=== PATIENT | female | born 1995 | race African-American/Black ===

== ENCOUNTER 2022-10-31 18:57 | Emergency (ER) | payer OTHER, SELFPAY ==
[2022-10-31] VITALS (8 sets, daily range): BP systolic 112–143; BP diastolic 62–79; PULSE 70–89; RESP 16–18; TEMP 36.4–36.6; O2SAT 99–100
--- NOTE | ~2022-10-31 | CT_ITS ---
EXAMINATION: CTA brain carotid DATE: 10/31/2022 21:02 INDICATION: headache x1 month, family hx of aneurysm TECHNIQUE: Computed tomographic angiography (CTA) of the head was performed withwith 100 mL Omnipaque -350 intravenous contrast. CTA of the neck was performed with intravenous contrast. The dose-length p roduct was 1790.12 mGy-cm. Maximum intensity projection and volume rendered 3D-reconstructions were c reated by the technologist on a separate workstation. COMPARISON: None. FINDINGS: CT BRAIN: No acute large vessel infarct, intracranial hemorrhage, mass, or hydrocephalus. CTA HEAD: No large vessel occlusion, aneurysm, high flow vascular malformation, nidus or extravasation. The com municating arteries are patent. Hypoplastic intradural right distal vertebral artery. Normal-appearin g cerebral veins. Symmetric cerebral parenchymal enhancement. CTA NECK: Aortic arch and proximal great vessels: Bovine arch. Right common carotid, carotid bifurcation, and internal carotid artery: No plaque.There is 0% stenosi s of the proximal right internal carotid artery relative to normal distal artery lumen diameter (NASC ET criteria). Left common carotid, carotid bifurcation, and internal carotid artery: No plaque.There is 0% stenosis of the proximal left internal carotid artery relative to normal distal artery lumen diameter (NASCET criteria). Vertebral arteries: No significant plaque or stenosis. The left vertebral artery is dominant. Other findings: None. IMPRESSION: No acute intracranial process. No large vessel occlusion. No cerebral aneurysm. No significant caroti d or vertebral stenosis. Reviewed, dictated and finalized at location [facility] [employer] IMPRESSION: No acute intracranial process. No large vessel occlusion. No cerebral aneurysm. No significant carotid or vertebral stenosis.
--- NOTE | 2022-10-31 19:35 | PC.NURSE ---
Triage note reviewed and confirmed. First encounter w/ pt. Pt c/o intermittent headache x a few months. States pain is on R side. 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 No medical problems. Pt states receiving IV zofran seating captain by EMS. Pt resting comfortably in bed, NAD.
[2022-10-31] MEDS: KETOROLAC 30 MG/ML VIAL (*BKC) IV PUSH (20:13)
[2022-10-31] MEDS: SODIUM CHLORIDE 0.9% IV 1,000 ML 999 ML IV CONT (20:13)
[2022-10-31] MEDS: diphenhydrAMINE HCl INJ 50 MG/ML VIAL IV PUSH (20:13)
[2022-10-31] MEDS: METOCLOPRAMIDE HCL INJ 10 MG/2 ML VIAL IV PUSH (20:13)
[2022-10-31 20:23] LABS: Basophils Percent Auto 0.3 % (0.2-1.2); Eosinophils Percent Auto 0.5 % (0-4.4); Hematocrit 38.6 % (37.0-47.0); Hemoglobin 12.8 g/dL (12.0-15.0); Immature Granulocyte Absolute 0.03 K/mm3 (0.00-0.031); Immature Granulocyte Percent A 0.4 % (0-0.5); Lymphocytes Absolute Auto 1.58 K/mm3 (0.9-3.2); Lymphocytes Percent Auto 21.4 % (18.3-44.2); Mean Corpuscular HGB Conc 33.2 g/dl (32-36); Mean Corpuscular Volume 84.5 fl (80-100); Mean Platelet Volume 10.1 fl (7.4-10.4); Monocytes Absolute Auto 0.3 K/mm3 (0.1-0.6); Monocytes Percent Auto 4.6 % (2.6-8.5); Neutrophils Absolute Auto 5.4 K/mm3 (1.3-6.7); Neutrophils Percent Auto 72.8 % (45.5-73.1); Platelet Count Result 224 k/mm3 (150-375); Red Blood Count 4.57 M/mm3 (4.2-5.4); Red Cell Distribution Width 13.7 % (11.5-14.5); White Blood Count 7.4 K/mm3 (4.5-10.0)
[2022-10-31 20:25] LABS: Appearance Urine Slightly Cloudy (Clear); Bilirubin Urine Negative (Negative); Blood Urine 2+ (Negative); Color Urine Yellow (Yellow); Glucose Urine UA Negative (Negative); Ketones Urine Negative (Negative); Leukocyte Esterase Ur Negative LEU/UL (Negative); Nitrate Urine Negative (Negative); Protein Urine Negative (Negative); Urobilinogen Urine 0.2 mg/dL (<2.0); pH Urine 8.5 (5.0-9.0)
[2022-10-31 20:26] LABS: Mucus Urine Rare /lpf; RBC Urine 0-2 /hpf (0-2); Squamous Epithelial Cell Urine Rare /hpf (Few); WBC Urine 0-3 /hpf
[2022-10-31 20:27] LABS: Add Urine Microscopic? YES
[2022-10-31 20:32] LABS: Alanine Aminotransferase 20 U/L (6-35); Albumin Level 4.4 g/dL (3.5-5.1); Alkaline Phosphatase 77 U/L (38-126); Anion Gap 8 mmol/L (8-16); Aspartate Amino Transferase 22 U/L (14-36); Bilirubin,Total 0.4 mg/dL (0.2-1.3); Blood Urea Nitrogen 13 mg/dL (7-17); Calcium 8.7 mg/dL (8.4-10.2); Carbon Dioxide 24 mmol/L (22-30); Chloride 105 mmol/L (98-107); Estimated Glomerular Filt Rate > 60; Glucose 108 mg/dL (65-110); Potassium 3.5 mmol/L (3.4-5.0); Sodium 137 mmol/L (137-145)
--- NOTE | 2022-10-31 20:40 | PC.NURSE ---
pt resting comfortably in bed, NAD. Skin warm/dry, WCTM.
--- NOTE | 2022-10-31 21:40 | ED.GENADULT ---
HPI - General Adult General Chief complaint: Headache Stated complaint: headache Time Seen by Provider: 10/31/22 19:55 History of Present Illness HPI narrative: Patient is a 27-year-old female who presents emerged from with chief complaint of headache. Patient reports that she has been having intermittent headaches for several days now reports that the light bothers her eyes reports she has some nausea patient reports is more right frontal patient states has been progressively worse but denies fever patient states that she was more concerned as her headaches have not been improving and that her mother had a cerebral aneurysm. Related Data Allergies Allergy/AdvReac Type Severity Reaction Status Date / Time No Known Allergies Allergy Unverified 07/31/17 22:35 Review of Systems Review of Systems: A 10 system review of systems was completed on the patient and is negative except for what is stated in the HPI. Nursing and ancillary documentation was reviewed. Exam Narrative: GENERAL: Well-appearing, well-nourished, and in no acute distress. HEAD: Normocephalic, atraumatic. EYES: PERRLA and EOMI. ENT: Nares clear, no rhinorrhea or epistaxis. Mucous membranes moist. NECK: Supple. CHEST: Clear to auscultation. No respiratory distress. HEART: Regular rate and rhythm. No murmur heard. Normal peripheral pulses. ABDOMEN: Soft, nontender, nondistended, normal active bowel sounds. EXTREMITIES: Normal range of motion. No edema. SKIN: Warm, dry, no rash. NEURO: No focal deficits. Alert and oriented x3. PSYCH: Normal mood and affect. Course Vital Signs Vital signs: Vital Signs Temperature 36.4 C 10/31/22 19:17 Pulse Rate 71 10/31/22 19:17 Respiratory Rate 16 10/31/22 19:17 Blood Pressure 143/77 H 10/31/22 19:17 Pulse Oximetry 100 10/31/22 19:17 Temperature 36.4 C 10/31/22 19:17 Pulse Rate 89 10/31/22 20:02 Respiratory Rate 18 10/31/22 20:02 Blood Pressure 112/62 10/31/22 20:02 Pulse Oximetry 100 10/31/22 20:30 Medical Decision Making [facility] Narrative Medical decision making narrative: Differential diagnosis includes migraine headache, tension headache, cerebral aneurysm, Due to the patient's significant history in her family of aneurysm and the new worsening headache CT angiography was obtained of the head showed no evidence of cerebral aneurysm I receiving standard migraine therapy patient is feeling much better Laboratory studies were obtained which showed a normal urinalysis normal CBC and normal electrolytes. Vital Signs Vital Signs: Vital Signs Temperature 36.4 C 10/31/22 19:17 Pulse Rate 71 10/31/22 19:17 Respiratory Rate 16 10/31/22 19:17 Blood Pressure 143/77 H 10/31/22 19:17 Pulse Oximetry 100 10/31/22 19:17 Temperature 36.4 C 10/31/22 19:17 Pulse Rate 89 10/31/22 20:02 Respiratory Rate 18 10/31/22 20:02 Blood Pressure 112/62 10/31/22 20:02 Pulse Oximetry 100 10/31/22 20:30 Lab Data 10/31/22 20:15 10/31/22 20:15 Labs: Lab Results 10/31/22 10/31/22 10/31/22 Range/Units 20:15 20:15 20:15 WBC 7.4 (4.5-10.0) K/mm3 RBC 4.57 (4.2-5.4) M/mm3 Hgb 12.8 (12.0-15.0) g/dL Hct 38.6 (37.0-47.0) % MCV 84.5 (80-100) fl MCH 28.0 (26-34) pg MCHC 33.2 (32-36) g/dl RDW 13.7 (11.5-14.5) % Plt Count 224 (150-375) k/mm3 MPV 10.1 (7.4-10.4) fl Immature Gran % (Auto) 0.4 (0-0.5) % Neut % (Auto) 72.8 (45.5-73.1) % Lymph % (Auto) 21.4 (18.3-44.2) % [place] % (Auto) 4.6 (2.6-8.5) % Eos % (Auto) 0.5 (0-4.4) % Baso % (Auto) 0.3 (0.2-1.2) % Lymph # (Auto) 1.58 (0.9-3.2) K/mm3 [place] # (Auto) 0.3 (0.1-0.6) K/mm3 Eos # (Auto) 0.0 (0-0.3) K/mm3 Baso # (Auto) 0.0 (0.0-0.1) K/mm3 Abs Immat Gran (auto) 0.03 (0.00-0.031) K/mm3 Absolute Neuts (auto) 5.4 (1.3-6.7) K/mm3 Absolute Nucleated RBC 0.0 (0.0-0.012) K/mm3 Nu
--- NOTE | 2022-11-07 11:01 | PC.NURSE ---
LATE ENTRY This note is being entered to document information to the patient's record. The following information was omitted on [11/07/22], by [Desire] NS stopped at 2112 on 10/31/22 .
== END 2022-10-31 22:19 | disposition home or self-care (01) ==
PROVIDERS: Emergency Provider Emergency Medicine
DX: G43.909 Migraine, unspecified, not intractable, without status migrainosus (principal)
CPT/HCPCS: 36415; 70496; 70498; 80053; 81001; 81025; 85025; 96361; 96374; 96375; 99284; J1200; J1885; J2765; J7030; Q9967

== ENCOUNTER 2023-01-24 18:23 | Emergency (ER) | payer OTHER, SELFPAY ==
[2023-01-24 18:29] VITALS: BP 125/60; PULSE 80; RESP 18; TEMP 36.9; O2SAT 94
[2023-01-24 20:30] VITALS: BP 123/74; PULSE 80; RESP 19; O2SAT 99
--- NOTE | 2023-01-24 20:44 | ED.FEMALEGU ---
HPI - Female Genitourinary General Chief complaint: STORE FACILITY TECHNICIAN Stated complaint: vaginal irritation Time Seen by Provider: 01/24/23 20:05 History of Present Illness HPI Narrative: This is a 27-year-old female with no significant past medical history, -1-0-1, who presents to the emergency department complaining of pelvic discomfort and vaginal irritation for the past week. She denies fevers or associated abdominal pain, but has had tenderness during sexual intercourse and abnormal vaginal discharge without bleeding. She has no other complaints or change in partners. She is followed by gynecology at [facility] in [facility]. Related Data Allergies Allergy/AdvReac Type Severity Reaction Status Date / Time No Known Allergies Allergy Unverified 07/31/17 22:35 Review of Systems Review of Systems: CONSTITUTIONAL: Denies fever, chills, or sweats. GASTROINTESTINAL: Denies abdominal pain, nausea, vomiting, or diarrhea. GENITOURINARY: Abnormal vaginal discharge, vaginal irritation, dyspareunia denies dysuria or hematuria. SKIN: Denies rash or itching. MUSCULOSKELETAL: Denies back pain, joint pain, or myalgia. NEUROLOGIC: Denies headache, numbness, dizziness, or weakness. PSYCHIATRIC: Denies anxiety or depression. [facility] Social History Social History (Updated 01/24/23 @ 20:47 by Terell Cheng MD) Smoking status: Never smoker Alcohol intake: never Substance use: never Exam Narrative: GENERAL: Well-developed, well-nourished, and in no acute distress. HEAD: Normocephalic, atraumatic. EYES: PERRLA and EOMI. CHEST: Clear to auscultation. No respiratory distress. No wheezes rales or rhonchi HEART: Regular rate and rhythm. No murmur heard. Normal peripheral pulses. ABDOMEN: Soft, mild right lower quadrant tenderness to palpation without guarding or rebound, nondistended, normal active bowel sounds. : Exam chaperoned by female traffic signal technician. Normal external female genitalia. Purulent cervical discharge noted without bleeding. Cervical motion tenderness and bilateral adnexal tenderness, right greater than left EXTREMITIES: Normal range of motion. No edema. PSYCH: Normal mood and affect. Course Course Emergency Course: 20:45 - Exam is concerning for PID. Vital signs within normal limits. I have a low suspicion for TOA. test negative. Will treat with Rocephin, Doxy and Flagyl. UA pending. 22:00 - UA not concerning for UTI. Gonorrhea, chlamydia and trichomonas pending. Will discharge with regimen of doxycycline and Flagyl for PID. I advised patient to follow-up with her primary care doctor and dean of admissions. Discussed return and emergency precautions including signs/symptoms of acute abdomen and sepsis. The patient voiced understanding and is comfortable with the plan. All questions answered to her satisfaction. Vital Signs Vital signs: Vital Signs Temperature 98.5 F 01/24/23 18:29 Pulse Rate 80 01/24/23 18:29 Respiratory Rate 18 01/24/23 18:29 Blood Pressure 125/60 01/24/23 18:29 Pulse Oximetry 94 01/24/23 18:29 Oxygen Delivery Room Air 01/24/23 18:29 Temperature 98.5 F 01/24/23 18:29 Pulse Rate 80 01/24/23 18:29 Respiratory Rate 18 01/24/23 18:29 Blood Pressure 125/60 01/24/23 18:29 Pulse Oximetry 94 01/24/23 18:29 Oxygen Delivery Room Air 01/24/23 18:29 MDM - Female Genitourinary MDM Narrative Medical decision making narrative: Plan: Labs, test, antibiotics, reassess Differential Diagnosis Differential diagnosis: Likely urinary tract infection, bacterial vaginosis, trichomoniasis and other (, PID, gonorrhea, chlamydia, other) Lab Data Labs: Lab Results 01/24/23 01/24/23 Range/Units 20:28 21:42 Urine Color Yellow (Yellow) Urine Appearance Clear (Clear) Urine pH 6.0 (5.0-9.0) Ur Specific [place] 1.012 (1.001-1.035) Urine Protein Negative (Negative) mg/dL Urine Glucose (UA) Negative (Neg
[2023-01-24] MEDS: cefTRIAXone 1 GM VIAL 0.5 GM IM (21:17)
[2023-01-24] MEDS: DOXYCYCLINE HYCLATE 100 MG TABLET PO (21:18)
[2023-01-24] MEDS: metroNIDAZOLE 250 MG TABLET 500 MG PO (21:18)
[2023-01-24 21:25] LABS: Appearance Urine Clear (Clear); Bilirubin Urine Negative (Negative); Blood Urine Negative (Negative); Color Urine Yellow (Yellow); Glucose Urine UA Negative (Negative); Ketones Urine Negative (Negative); Leukocyte Esterase Ur Negative LEU/UL (Negative); Nitrate Urine Negative (Negative); Protein Urine Negative (Negative); Specific Grav Ur 1.012 (1.001-1.035)
[2023-01-24 21:29] LABS: Add Urine Microscopic? NO
== END 2023-01-24 22:30 | disposition home or self-care (01) ==
PROVIDERS: Emergency Provider Preventive Medicine Aerospace Medicine
DX: N73.9 Female pelvic inflammatory disease, unspecified (principal); N94.10 Unspecified dyspareunia
CPT/HCPCS: 81003; 81025; 87205; 87491; 87591; 87808; 96372; 99284; A9270; J0696